=== PATIENT | female | born 1985 | race African-American/Black ===

== ENCOUNTER 2024-05-23 10:36 | Inpatient (IN) | payer OTHER ==
[2024-05-23 11:17] VITALS: BMI 33.3
[2024-05-23] MEDS ORDERED: IBUPROFEN 600 MG TABLET (FP) PO PRN (11:34)
[2024-05-23] MEDS ORDERED: guaiFENesin 600 MG TABLET.ER (FP) PO PRN (11:34)
[2024-05-23] MEDS ORDERED: ACETAMINOPHEN 325 MG TABLET (FP) PO PRN (11:34)
[2024-05-23] MEDS ORDERED: MAGNESIUM HYDROX 2400MG/30ML ORAL SUSPENSION 30 ML CUP PO PRN (11:34)
[2024-05-23] MEDS ORDERED: MAG HYDROX/AL HYDROX/SIMETH 30 ML UNIT-DOSE CUP PO PRN (11:34)
[2024-05-23] MEDS ORDERED: DICYCLOMINE HCL 10 MG CAPSULE PO PRN (11:34)
[2024-05-23] MEDS ORDERED: LOPERAMIDE HCL 2 MG CAPSULE PO PRN (11:34)
[2024-05-23] MEDS ORDERED: NALOXONE (NARCAN) HCL 4 MG/0.1 ML SPRAY NS PRN (11:34)
[2024-05-23] MEDS ORDERED: IBUPROFEN 400 MG TABLET (FP) PO PRN (11:34)
[2024-05-23] MEDS ORDERED: BISMUTH SUBSALICYLATE 262 MG/15 ML BTL PO PRN (11:34)
[2024-05-23] MEDS ORDERED: BENZONATATE 200 MG CAPSULE PO PRN (11:34)
[2024-05-23] MEDS ORDERED: POLYETHYLENE GLYCOL (HEALTHYLAX) 3350 17 GM PACKET PO PRN (11:34)
[2024-05-23] MEDS ORDERED: ONDANSETRON *ODT* 4 MG TABLET SL PRN (11:34)
[2024-05-23] MEDS ORDERED: BENZOCAINE/MENTHOL (CHLORASEPTIC ) LOZENGE MM PRN (11:34)
[2024-05-23] MEDS ORDERED: chlordiazePOXIDE HCL 25 MG CAPSULE PO PRN (15:38)
[2024-05-23] MEDS: chlordiazePOXIDE HCL 25 MG CAPSULE PO SCH (17:19)
[2024-05-23] MEDS: hydrOXYzine PAMOATE 25 MG CAPSULE (FP) PO PRN (17:20)
[2024-05-23] MEDS: NALTREXONE HCL 50 MG TABLET PO ONE (17:22)
[2024-05-23] MEDS: METHOCARBAMOL 500 MG TABLET PO PRN (22:46)
[2024-05-23] MEDS: THIAMINE 100 MG TABLET PO SCH (22:46)
[2024-05-23] MEDS: MELATONIN 5 MG TABLETS PO SCH (22:46)
[2024-05-24] MEDS: chlordiazePOXIDE HCL 25 MG CAPSULE PO SCH (05:39)
[2024-05-24] MEDS ORDERED: LEVOTHYROXINE SODIUM PO SCH (06:00)
[2024-05-24] MEDS: LEVOTHYROXINE NA 100 MCG TABLET (FP) PO SCH (07:45)
[2024-05-24] MEDS ORDERED: metFORMIN HCL 500 MG TABLET (FP) PO SCH (08:00)
[2024-05-24] MEDS: NALTREXONE HCL 50 MG TABLET PO SCH (10:03)
[2024-05-24] MEDS: LORATADINE 10 MG TABLET PO SCH (10:03)
[2024-05-24] MEDS: PRENATAL VITAMINS W/ FOLIC ACID TABLET (FP) PO SCH (10:03)
[2024-05-24] MEDS: ARIPiprazole 10 MG TABLET PO SCH (10:55)
[2024-05-24 11:23] LABS: HEMATOCRIT 37.4 % (32.4-45.2); HEMOGLOBIN 11.9 GM/dL (10.7-15.3); MCH 26.4 pg (25.7-33.7); MCHC 31.9 g/dl (32.0-36.0); MEAN CELL VOLUME 82.9 fl (80-96); MEAN PLT VOLUME 8.5 fl (7.5-11.1); PLATELET COUNT 316 10^3/uL (134-434); RBC 4.51 M/mm3 (3.60-5.2); RDW 15.2 % (11.6-15.6); WHITE BLOOD COUNT 3.2 K/mm3 (4.0-10.0)
[2024-05-24 11:34] LABS: BLOOD UREA NITROGEN 9.5 mg/dL (7-18); CREATININE 0.9 mg/dL (0.55-1.3)
[2024-05-24 11:36] LABS: BILIRUBIN,TOTAL 0.6 mg/dL (0.2-1); CALCIUM 9.3 mg/dL (8.5-10.1); TOT PROT 7.7 g/dl (6.4-8.2)
[2024-05-25] MEDS ORDERED: chlordiazePOXIDE HCL 10 MG CAPSULE PO PRN
[2024-05-25] MEDS: chlordiazePOXIDE HCL 10 MG CAPSULE PO SCH (05:46)
[2024-05-25] MEDS ORDERED: ESCITALOPRAM OXALATE 10 MG TABLET ONE ×2 (10:17→10:19)
[2024-05-25] MEDS: ESCITALOPRAM OXALATE 20 MG TABLET PO SCH (10:20)
[2024-05-25 17:31] VITALS: RESP 16
[2024-05-26] MEDS: chlordiazePOXIDE HCL 10 MG CAPSULE PO SCH (05:45)
[2024-05-26] MEDS ORDERED: ESCITALOPRAM OXALATE 10 MG TABLET ONE (09:50)
[2024-05-26 17:54] VITALS: BP 125/86; PULSE 88; TEMP 98.2
[2024-05-27] MEDS ORDERED: chlordiazePOXIDE HCL 10 MG CAPSULE PO ONE (05:00)
== END 2024-05-26 19:12 | disposition other institution (70) | DRG 775 ==
LOC: YASAS 10:36 → Y6N 12:05
PROVIDERS: ADMIT Allergy & Immunology; ATTEND Allergy & Immunology
PROC: HZ2ZZZZ Detoxification Services for Substance Abuse Treatment (ICD-10-PCS; principal; 2024-05-23)
DX: F10.230 Alcohol dependence with withdrawal, uncomplicated (principal); F25.1 Schizoaffective disorder, depressive type; F12.10 Cannabis abuse, uncomplicated; F10.24 Alcohol dependence with alcohol-induced mood disorder; E03.9 Hypothyroidism, unspecified; J30.9 Allergic rhinitis, unspecified; R73.03 Prediabetes; Z91.410 Personal history of adult physical and sexual abuse; Z63.0 Problems in relationship with spouse or partner; Z98.84 Bariatric surgery status
CPT/HCPCS: 36415; 80053; 80305; 80307; 81025; 82962; 83036; 84439; 84443; 85027; 86780; 93005; 93010

== ENCOUNTER 2024-05-26 19:13 | Inpatient (IN) | payer OTHER ==
[~2024-05-26 19:13] MED LIST: BENZOCAINE/MENTHOL (CHLORASEPTIC ) LOZENGE MM PRN; BENZONATATE 200 MG CAPSULE PO PRN; LOPERAMIDE HCL 2 MG CAPSULE PO PRN; MAG HYDROX/AL HYDROX/SIMETH 30 ML UNIT-DOSE CUP PO PRN; MAGNESIUM HYDROX 2400MG/30ML ORAL SUSPENSION 30 ML CUP PO PRN; NALOXONE (NARCAN) HCL 4 MG/0.1 ML SPRAY NS PRN; NICOTINE POLACRILEX 2 MG GUM BUC PRN; NICOTINE POLACRILEX 2 MG LOZENGE BC PRN; POLYETHYLENE GLYCOL (HEALTHYLAX) 3350 17 GM PACKET PO PRN; guaiFENesin 600 MG TABLET.ER (FP) PO PRN
[2024-05-26] MEDS: THIAMINE 100 MG TABLET PO SCH (22:31)
[2024-05-26] MEDS: MELATONIN 5 MG TABLETS PO SCH (22:31)
[2024-05-27] MEDS: LEVOTHYROXINE NA 100 MCG TABLET (FP) PO SCH (06:54)
[2024-05-27] MEDS: PRENATAL VITAMINS W/ FOLIC ACID TABLET (FP) PO SCH (09:32)
[2024-05-27] MEDS: ARIPiprazole 10 MG TABLET PO SCH (09:32)
[2024-05-27] MEDS: LORATADINE 10 MG TABLET PO SCH (09:32)
[2024-05-27] MEDS: ESCITALOPRAM OXALATE 10 MG TABLET PO SCH (09:32)
[2024-05-27] MEDS: NALTREXONE HCL 50 MG TABLET PO SCH (09:32)
[2024-05-27] MEDS: metFORMIN HCL 500 MG TABLET (FP) PO SCH (12:14)
[2024-05-27] MEDS: IBUPROFEN 600 MG TABLET (FP) PO PRN (20:52)
[2024-05-29] MEDS: hydrOXYzine PAMOATE 25 MG CAPSULE (FP) PO PRN (05:34)
[2024-05-30] MEDS: ACETAMINOPHEN 325 MG TABLET (FP) PO PRN (16:59)
[2024-05-31] MEDS: IBUPROFEN 400 MG TABLET (FP) PO PRN (06:20)
[2024-06-05 06:46] VITALS: TEMP 98
[2024-06-05 09:18] VITALS: BP 139/84; PULSE 102; RESP 18
== END 2024-06-05 10:55 | disposition home or self-care (01) | DRG 772 ==
LOC: YASAS 19:13 → Y3NR 19:15 → Y5N 05-29 15:35
PROVIDERS: ADMIT Psychiatry & Neurology Pain Medicine; ATTEND Psychiatry & Neurology Pain Medicine
PROC: HZ42ZZZ Group Counseling for Substance Abuse Treatment, Cognitive-Behavioral (ICD-10-PCS; principal; 2024-05-26)
DX: F10.20 Alcohol dependence, uncomplicated (principal); F12.20 Cannabis dependence, uncomplicated; E89.0 Postprocedural hypothyroidism; R73.03 Prediabetes; Z79.84 Long term (current) use of oral hypoglycemic drugs; Z90.3 Acquired absence of stomach [part of]; Z87.891 Personal history of nicotine dependence
CPT/HCPCS: 82962; 87811